=== PATIENT | female | born 1940 | race Caucasian/White ===

== ENCOUNTER 2016-12-05 08:43 | Emergency (ER) | payer MEDICARE ==
[2016-12-05 09:20] LABS: BASOPHIL 0.4 % (0-2); EOSINOPHIL 0.8 % (0-7); HCT 42.6 % (37.0-47.0); HGB 14.4 g/dl (12.5-16.0); LYMPHOCYTE 8.8 % (15-48); MCHC 33.8 g/dL (32.0-36.0); MCV 91.8 fL (78.0-100.0); MONOCYTE 5.4 % (0-12); MPV 10.7 fL (6.0-9.5); NEUTROPHIL 84.6 % (41-80); PLT 249 K/uL (150-400); RBC 4.64 M/uL (4.20-5.40); RDW 13.6 % (11.5-14.0)
[2016-12-05 09:43] LABS: PROTHROMBIN TIME 12.8 SECONDS (11.7-14.0); PTT 55.5 SECONDS (23.2-31.4)
[2016-12-05 09:49] LABS: ALBUMIN 4.3 g/dL (3.4-4.8); BILIRUBIN - TOTAL 0.6 mg/dL (0.1-1.0); CREATININE 1.1 mg/dL (0.5-1.0); GLOBULIN (CALCULATION) 2.5 g/dL (2.2-4.2); POTASSIUM 3.7 mmol/L (3.5-5.1); TOTAL PROTEIN 6.8 g/dL (6.4-8.3)
== END 2016-12-05 15:52 | disposition home or self-care (01) ==
LOC: FER 08:43
PROVIDERS: Emergency Medicine
DX: I71.4 Abdominal aortic aneurysm, without rupture (principal); I11.9 Hypertensive heart disease without heart failure; I25.10 Atherosclerotic heart disease of native coronary artery without angina pectoris; G30.9 Alzheimer's disease, unspecified; F02.80 Dementia in other diseases classified elsewhere, unspecified severity, without behavioral disturbance, psychotic disturbance, mood disturbance, and anxiety; E78.5 Hyperlipidemia, unspecified; Z87.891 Personal history of nicotine dependence; Z82.49 Family history of ischemic heart disease and other diseases of the circulatory system; Z90.49 Acquired absence of other specified parts of digestive tract
CPT/HCPCS: 36415; 71275; 80053; 82150; 83690; 84484; 85025; 85610; 85730; 86850; 86900; 86901; 93005; J2060; Q9967